=== PATIENT | female | born 1950 | race Caucasian/White ===

== ENCOUNTER 2024-05-19 11:43 | Emergency (ER) | payer OTHER, MEDICARE ==
[~2024-05-19] VITALS: Ht 162.6 cm; Wt 78.0 kg
[~2024-05-19 11:43] MED LIST: FOLIC ACID1 M1 PO; OTREXUP7.5 MG/0.4; REMICADE INJ100 MG IV
[2024-05-19] MEDS ORDERED: MORPHINE SULFATE 4 MG/ML VIAL IV ONE (11:50)
[2024-05-19] MEDS ORDERED: ONDANSETRON HCl 4 MG/2 ML SDV IV ONE (11:50)
[2024-05-19 12:33] LABS: BASO% 0.4 % (0-3); EOS% 1.5 % (0-8); HEMATOCRIT 39.6 % (37.0-47.0); HEMOGLOBIN 12.6 g/dl (12.0-16.0); LYMPH% 24.7 % (15-41); MEAN CELL VOLUME 99.2 fL CALC (80.0-100.0); MEAN CORPUSCULAR HGB 31.6 pG CALC (26.0-32.0); MEAN CORPUSCULAR HGB CONC 31.8 g/dL CAL (32.0-36.0); MONO% 5.5 % (2-13); NEUT# 9.17 thou/uL (2.00-7.15); NEUT% 66.9 % (42-76); RED BLOOD COUNT 3.99 mill/uL (4.20-5.60); RED CELL DISTRI WIDTH 13.9 % (11.5-15.5)
[2024-05-19 12:49] LABS: ALBUMIN 4.2 g/dL (3.2-5.0); ALKALINE PHOSPHATASE 86 u/l (38-126); ANION GAP 11 (6-22 (CALC)); BUN 20 mg/dL (8-23); BUN/CREATININE RATIO 20 (12-20 (CALC)); CARBON DIOXIDE 23 mmol/l (22-30); CHLORIDE 107 mmol/l (95-108); ESTIMATED GFR 60 ML/MIN (>=90 (CALC)); POTASSIUM 3.6 mmol/l (3.5-5.1); SODIUM 138 mmol/l (137-146); TOTAL PROTEIN 7.7 g/dL (6.3-8.2)
[2024-05-19 12:50] LABS: BILIRUBIN, TOTAL 0.9 mg/dL (0.02-1.3); SGOT/AST 86 u/l (9-36)
[2024-05-19] MEDS ORDERED: ZPAK PO (16:57)
[2024-05-19] MEDS ORDERED: HYDROCO/APAP1 TA9 PO (16:57)
[2024-05-19] MEDS ORDERED: ZOFRAN4 MG/TAB PO (16:57)
[2024-05-19] MEDS ORDERED: AMOX/K CLAV875 M1 PO (16:57)
[2024-05-19 17:35] VITALS: BP 102/50
== END 2024-05-19 17:35 | disposition left against medical advice (07) | DRG 563 ==
LOC: ED 11:43
PROVIDERS: Family Medicine
PROC: 0RSJXZZ Reposition Right Shoulder Joint, External Approach (ICD-10-PCS; principal; 2024-05-19)
DX: S43.004A Unspecified dislocation of right shoulder joint, initial encounter (principal); J90 Pleural effusion, not elsewhere classified; N83.202 Unspecified ovarian cyst, left side; N83.201 Unspecified ovarian cyst, right side; V49.40XA Driver injured in collision with unspecified motor vehicles in traffic accident, initial encounter; Z53.29 Procedure and treatment not carried out because of patient's decision for other reasons; Z20.822 Contact with and (suspected) exposure to COVID-19
CPT/HCPCS: Q9967